=== PATIENT | male | born 1955 | race Two or more races ===

== ENCOUNTER 2025-07-02 10:00 | Day surgery (SDC) | payer MEDICAID, SELFPAY ==
--- NOTE | 2025-07-01 09:56 | EKG_ITS ---
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
[2025-07-01 10:11] VITALS: BMI 26.9
[2025-07-01 12:21] LABS: Basophils # (Auto) 0.0 Thou/mm3 (0.0-0.2); Basophils % (Auto) 0 % (0-2.5); Eosinophils # (Auto) 0.1 Thou/mm3 (0.0-0.5); Eosinophils % (Auto) 2 % (0-10); Hematocrit 40.5 % (41.0-53.0); Hemoglobin 13.6 g/dL (13.5-16.0); Immature Granulocytes Auto 0.01 Thou/mm3 (0.00-0.00); Lymphocytes # (Auto) 2.1 Thou/mm3 (1.0-4.8); Lymphocytes % (Auto) 40 % (10-50); Mean Corpuscular HGB Conc 33.6 g/dl (31.0-37.0); Mean Corpuscular Hemoglobin 30.4 pg (25.0-35.0); Mean Corpuscular Volume 90 fL (80-100); Monocytes # (Auto) 0.4 Thou/mm3 (0.0-0.8); Monocytes % (Auto) 8 % (0-12); Neutrophils # (Auto) 2.6 Thou/mm3 (1.8-7.7); Neutrophils % (Auto) 50 % (37-80); Nucleated Red Blood Cell # 0.00 Thou/mm3 (0.00-0.00); Nucleated Red Blood Cell % 0 /100 WBC (0); Platelet Count 193 Thou/mm3 (140-440); RDW Standard Deviation 49.0 fL (35.1-43.9); Red Blood Count 4.48 Miln/mm3 (4.50-5.90); White Blood Count 5.2 Thou/mm3 (3.8-10.6)
[2025-07-01 12:27] LABS: INR 1.0 (0.9-1.3); Partial Thromboplastin Time 31.7 Seconds (22.0-36.0); Prothrombin Time 10.8 Seconds (9.0-12.2)
[2025-07-01 12:39] LABS: Alanine Aminotransferase 17 U/L (10-49); Albumin, Serum 5.0 gm/dL (3.4-4.8); Albumin/Globulin Ratio 2.4 (1.2-2.2); Alkaline Phosphatase 76 U/L (46-116); Anion Gap 13 (7-16); Aspartate Amino Transferase 17 U/L (0-34); BUN/Creatinine Ratio 12 Ratio (12-20); Bilirubin,Total 0.5 mg/dL (0.3-1.2); Blood Urea Nitrogen 12 mg/dL (9-23); Calcium 9.2 mg/dL (8.3-10.6); Calcium (Corrected) 9.2 mg/dL (8.5-10.1); Carbon Dioxide 24.9 mMol/L (20.0-31.0); Chloride 102 mMol/L (98-107); Creatinine (Component) 1.0 mg/dL (0.6-1.3); Estimated Creatinine Clearance 60.9 mL/min (>60); Globulin 2.1 gm/dL (2.3-3.5); Glucose 190 mg/dL (74-106); Osmolality,Calculated 284 (275-295); Potassium 3.9 mMol/L (3.4-5.1); Sodium 140 mMol/L (136-145); Total Protein 7.1 gm/dL (5.7-8.2); eGFR > 60 See Note
[2025-07-02] VITALS (7 sets, daily range): BP systolic 113–167; BP diastolic 73–90; PULSE 65–79; RESP 13–20; TEMP 36.1–37; O2SAT 95–99; BMI 26.6
--- NOTE | 2025-07-02 12:15 | SUR.PHASEI ---
Pt. arrived to recovery via gurney, eyes closed, responds to verbal commands, VSS, no c/o pain or nausea at this time, lung sounds clear, equal expansion jama., pt. receiving 8 liters 02 via oxymask, dressing to right shoulder, prineo, fluffs, abd. pad, hypafix tape and arm sling in place, cap refill to fingers on right hand <3 seconds, radial pulse to right side present and palpable, report received from Dr. Zacarias and Dirk GARCIA.
--- NOTE | 2025-07-02 12:15 | PD.SUROPNT ---
Date of Procedure 07/02/25 Pre Op Diagnosis 1. Right rotator cuff tear 2 right shoulder impingement syndrome Post Op Diagnosis Same Procedure 1. Excision lateral end of the clavicle 2 excision coracoacromial ligament 3. Acromioplasty 4. Repair of rotator cuff 5. Manipulation under anesthesia Findings Refer dictation Procedure Description The patient was given general endotracheal anesthesia. The shoulder block was given. Once satisfactory anesthesia was achieved patient was put in about 45?? sitting position with sandbag underneath the right shoulder blade. The part was thoroughly prepped and draped. Patient already underwent right rotator cuff repair about 25 years back. There is 1 scar dante about inch and a half or 2 placed up likely on the acromial process. A skin incision was made at the AC joint extending proximally towards the neck for a half inches and distally towards the arm for about couple of inches. Deeper dissection was carried out. Bleeding vessels were electrocoagulated as and when encountered. The soft tissue was reflected. Following that AC joint was exposed and AC joint was exposed. It revealed thickened capsule and significant DJD. There was inferior spur coming out from the lateral end of the clavicle. The deltoid muscle was reflected from the anterior and lateral aspect of the acromial process. It revealed 3 to 4 mm long anterior osteophytes and couple of millimeter long lateral osteophytes the bony spur was removed. Following that a periosteal elevator was placed underneath the lateral end of the clavicle and lateral 3-4 mm was excised. The coracoacromial ligament was removed. Following that anterior 2 mm and lateral 2 mm along with the osteophytes were also excised with the help of saw. With the help of curved osteotome the undersurface of the Acromial processes was chiseled out. That made more room between the superior surface of the head of the humerus and undersurface of the acromial process. Following that the rotator cuff was inspected. It revealed big oval tear, however most of the fibers were attached to the greater tuberosity. Wound was irrigated with antibiotic solution every 4-5 minutes. The left shoulder was manipulated at this time. Full range of abduction and forward flexion was achieved. The rotator cuff tear was repaired with 2-0 Vicryl. 2 drill holes were made on the acromial process and deltoid muscle was stitched back to it. Some reinforcement sutures were placed. The subcutaneous tissue was then closed with the help of 2-0 Vicryl and 3-0 Vicryl in layers. The subcu tissues to was closed with Monocryl to approximate the skin. After cleaning the wound with hydrogel proximal solution and sterile dressing was applied. Prineo tape was applied. Patient was taken to the recovery room in good condition. Estimated blood loss 20 mL. Prognosis in this case is good. Anesthesia GETA and other Pathology / specimen None Estimated Blood Loss 20 Surgeon Barrera Melgar MD Surgical Staff Operation Date: 07/02/25 13:45 Case Staff Anesthesiologist: Nasim Zacarias RN First Assistant: Sandra Rouse
--- NOTE | 2025-07-02 12:38 | SUR.PHASEII ---
1238: Report received from Vera RN, pt. AAOx4, vitals stable, breathing unlabored, no complaint of pain or nausea, dressing to right shoulder CDI, no active bleed noted, bilateral radial pulses strong and regular, cap refill to bilateral hands less than 3 seconds, pt. able to move bilateral hands.
--- NOTE | 2025-07-02 12:38 | SUR.PHASEII ---
Pt. sitting up tolerating sips of water. No c/o pain or nausea at this time.
--- NOTE | 2025-07-02 12:50 | ESHP_ITS ---
RE: PADMINI LOUIS : 1955 DATE OF ADMISSION: 07/02/2025 Patient came to my office on 07/01/2025 for detailed preop history and physical examination. HISTORY OF PRESENT COMPLAINT: Patient presented to me with significant pain in the right shoulder joint. Pain is there for 2-3 years, but last 6 months were extremely painful. Patient graded intensity of pain to be 8-9 out of 10. Unable to sleep. Unable to raise the right arm above the shoulder level. Basically, the quality of life and activity of daily living are affected. Conservative treatment did not help him. PAST MEDICAL HISTORY: Patient has history of diabetes mellitus. No history of high blood pressure, asthma, seizure, chest pain, myocardial infarction, bleeding disorder. PAST SURGICAL HISTORY: Patient underwent right rotator cuff repair about 20 years back. DRUG HISTORY: 1. The patient is on aspirin, which he stopped about 2 weeks back. 2. Vitamin B complex. 3. Insulin. 4. Glipizide. 5. Pioglitazone. 6. Metformin. 7. Alogliptin. ALLERGIES: NIL KNOWN. FAMILY HISTORY AND SOCIAL HISTORY: Noncontributory in this case. Patient denies smoking and drinking and is not working. PHYSICAL EXAMINATION: GENERAL: Normal built person. VITAL SIGNS: Pulse 76 per minute, blood pressure 138/86. NECK: Soft, supple. No mass felt. Trachea is centrally placed. CARDIOVASCULAR SYSTEM: First and second heart sounds normal. No murmur heard. RESPIRATORY SYSTEM: Bilateral vesicular breath sounds. Chest clear. ABDOMEN: Soft, scaphoid. No mass felt. Bowel sounds present. EXTREMITIES: Right shoulder examination revealed a scar dante present rather obliquely at the AC joint on the superior aspect. The length of the incision or the scar dante is about 2 to 2.5 inches. There is 2+ tenderness at AC joint and also at subacromial sub-bursal space. Active range of motion 0-80 degrees of abduction, 0-90 degrees of forward flexion. Internal rotation is severely restricted and painful. The impingement test, Maryan test, and also drop arm test are positive. DIAGNOSTIC DATA: MRI scan confirmed full thickness right rotator cuff tear with calcified tendonitis. ASSESSMENT AND PLAN: Since patient is symptomatic and MRI scan confirmed torn rotator cuff; therefore, right rotator cuff repair with Mat procedure was discussed and advised. Explained the process and procedure with the help of posters and shoulder model. All questions were answered. Risks with anesthesia were explained and that include, but not limited to reaction to anesthetic agents, cardiac arrest, and rarely it might be fatal. Risks with operation include infection and if that happens, patient may need further surgical procedure. Other risks include delayed healing, wound dehiscence, etc. No guarantee is given regarding outcome of the procedure and/or relief of symptoms. Indeed, physical therapy is very important component for the successful outcome of the procedure. Hence, full cooperation with physical therapy is advised. Accordingly, surgery is booked for 07/02/2025. Appropriate lab work is done. DT: 12:25:54 TT: 12:49:00 Ref: [id number] - TID: [id number]
--- NOTE | 2025-07-02 13:10 | SUR.PHASEII ---
1310: Pt. AAOx4, vitals stable, breathing unlabored, no complaint of pain or nausea, dressing to right shoulder CDI, no active bleed noted, bilateral radial pulses strong and regular, cap refill to bilateral hands less than 3 seconds, pt. able to wiggle fingers to bilateral hands, pt. tolerated sips of water well, pt. ambulated to wheelchair with steady gait and no assist, no complications. Gave discharge instructions to the pt. and his ride, both verbalized understanding and had no further questions. Pt. left with all personal belongings.
== END 2025-07-02 13:10 | disposition home or self-care (01) ==
PROVIDERS: Anesthesiology; Referring Provider Orthopaedic Surgery; Visit Provider Orthopaedic Surgery
PROC: (CPT 23412; principal; 2025-07-02 13:30)
DX: M75.101 Unspecified rotator cuff tear or rupture of right shoulder, not specified as traumatic (principal); M75.41 Impingement syndrome of right shoulder; Z01.810 Encounter for preprocedural cardiovascular examination; M65.811 Other synovitis and tenosynovitis, right shoulder
CPT/HCPCS: 23412; 23120; 36415; 80053; 85025; 85610; 85730; 93005; A4649; J0131; J0690; J1100; J1580; J1885; J2250; J2371; J2405; J2704; J2795; J3010; J3490